=== PATIENT | female | born 1955 | race Caucasian/White ===

== ENCOUNTER 2021-02-12 16:38 | Emergency (ER) | payer MEDICARE, SELFPAY ==
[2021-02-12 16:48] VITALS: BP 186/98; PULSE 70; RESP 20; TEMP 36.4; O2SAT 97
--- NOTE | 2021-02-12 17:16 | ED.DENTAL ---
HPI - Dental/Oral General Chief complaint: Dental/Oral Stated complaint: Toothache Source: patient and EMS Limitations: no limitations History of Present Illness HPI Narrative: The patient, a non-smoker/nondrinker who is on several meds including for chronic pain, presents with tooth ache. Patient states she has 1 to 2-day worsening of a least 2-week history of left lower tooth discomfort, associate with mild surrounding swelling. No fever, hoarseness, trismus, fracture; she reports she has a dental appointment,; Related Data Home Medications Medication Instructions Recorded Confirmed atenolol 1 tablet PO DAILY 02/12/21 02/12/21 duloxetine 1 tablet PO DAILY 02/12/21 02/12/21 gabapentin 1 tablet PO BID 02/12/21 02/12/21 morphine 20 mg PO TID 02/12/21 02/12/21 nortriptyline 25 mg PO HS 02/12/21 02/12/21 tramadol 50 mg PO Q6H PRN 02/12/21 02/12/21 Allergies Allergy/AdvReac Type Severity Reaction Status Date / Time No Known Allergies Allergy Verified 02/12/21 16:56 Review of Systems Review of Systems: General/Constitutional: No weight loss,fever Eyes: N0: Redness,discharge Ears/Nose/Throat: No: Epistaxis,ear discharge Respiratory: Denies: Hemoptysis Gastrointestinal: No Vomiting, Bleeding-rectal Skin: No Lumps, eruption Neurologic: No Focal Weakness,Sz Hematologic: Denies: Petechiae/Purpura Psychiatric: No: Suicida ideationl All Other Systems: Reviewed and Negative PMFSH Comments At time of signature, agree with nursing past medical, surgical, social and family history. There is no relevant family history pertinent to the presenting complaint Exam Narrative: General Appearance: Well appearing, Well nourished, Obese EYE: PERRLA, EOMI, Conjunctiva clear Ears: External ear normal, Auditory canal normal Nose: Normal nose Mouth/Throat: Normal appearing (with mild left lower jaw swelling), Normal lips, MM moist, Uvula midline (scattered dental caries and fillings,, with rare fracture) Neck: Supple, No adenopathy Respiratory: Airway patent, No respiratory distress, Musculoskeletal: Full ROM, Non tender, Normal strength Skin: Warm, Dry, Normal color Neurological: A&O x3, Speech clear, CN II-XII intact Psychiatric: Normal mood, Normal affect Course Vital Signs Vital signs: Vital Signs Temperature 97.5 F L 02/12/21 16:48 Pulse Rate 70 02/12/21 16:48 Respiratory Rate 20 02/12/21 16:48 Blood Pressure 186/98 H 02/12/21 16:48 Pulse Oximetry 97 02/12/21 16:48 Temperature 97.5 F L 02/12/21 16:48 Pulse Rate 70 02/12/21 16:48 Respiratory Rate 20 02/12/21 16:48 Blood Pressure 186/98 H 02/12/21 16:48 Pulse Oximetry 97 02/12/21 16:48 Discharge Plan Discharge Clinical Impression: Gingivitis, Abscess of jaw, left Patient Disposition: Home, Self-Care Condition: Stable Instructions: Dental Abscess (ED) Additional Instructions: You may take your own home pain medicines Prescriptions: New lidocaine HCl [Lidocaine Viscous] 2 % solution 5 ml MUCOUS MEM QID PRN (Reason: pain) Qty: 100 RF: 0 amoxicillin 875 mg tablet 875 mg PO Q12H Qty: 14 RF: 0 No Action tramadol 50 mg Tablet 50 mg PO Q6H PRN (Reason: Pain) RF: 0 nortriptyline 25 mg Capsule 25 mg PO HS RF: 0 morphine 20 mg Capsule,Extend.Release Pellets 20 mg PO TID RF: 0 atenolol 1 tablet PO DAILY RF: 0 duloxetine 1 tablet PO DAILY RF: 0 gabapentin 1 tablet PO BID RF: 0 Follow-up/Referrals: Jena,Gaetano Wilcox MD [Primary Care Provider] - Stand Alone Forms: Work/School Release IP
== END 2021-02-12 17:21 | disposition home or self-care (01) ==
PROVIDERS: Emergency Provider Emergency Medicine; PCP Internal Medicine
DX: K05.10 Chronic gingivitis, plaque induced (principal); M27.2 Inflammatory conditions of jaws; Z96.652 Presence of left artificial knee joint
CPT/HCPCS: 99213; G0463